=== PATIENT | male | born 1975 | race Caucasian/White ===

== ENCOUNTER → 2017-10-23 | Outpatient (REF) | payer OTHER ==
[2017-10-25 00:08] LABS: LEAD BLOOD ADULT 1 ug/dL (0-19)
== END ==
LOC: M LAB REF 13:38
DX: Z77.011 Contact with and (suspected) exposure to lead (principal)

== ENCOUNTER → 2018-02-08 | Outpatient (CLI) | payer OTHER | LOC: M WUC 13:10 | DX: S92.411A Displaced fracture of proximal phalanx of right great toe, initial encounter for closed fracture (principal); X58.XXXA Exposure to other specified factors, initial encounter; Y92.9 Unspecified place or not applicable | CPT/HCPCS: 73660 ==

== ENCOUNTER → 2020-06-16 | Outpatient (CLI) | payer SELFPAY | LOC: M LABSMTC 11:08 | PROVIDERS: ATTEND Pediatrics | DX: Z20.822 Contact with and (suspected) exposure to COVID-19 (principal) ==

== ENCOUNTER → 2022-07-07 | Outpatient (CLI) | payer OTHER ==
[~2022-07-07] MED LIST: LEVO1TAB39; OMEP-173; SERT50TA29
== END ==
LOC: M LABSMTC 11:04
PROVIDERS: ATTEND Anesthesiology
DX: Z01.812 Encounter for preprocedural laboratory examination (principal); Z20.822 Contact with and (suspected) exposure to COVID-19

== ENCOUNTER 2022-07-10 10:26 | Day surgery (SDC) | payer OTHER ==
[~2022-07-10] VITALS: Ht 185.4 cm; Wt 89.7 kg
[~2022-07-10 10:26] MED LIST changes: +NS 1,000 ML IV ONE
[2022-07-10] MEDS ORDERED: LIDOCAINE 2% 100MG/5ML SDV (FOR ANES.) As Ordered ONE (12:36)
[2022-07-10] MEDS ORDERED: propofoL 200 MG/20 ML VIAL As Ordered ONE (12:37)
[2022-07-10 13:07] VITALS: BP 127/75
== END 2022-07-10 13:29 | disposition home or self-care (01) ==
LOC: M OPP 10:26
PROVIDERS: ATTEND Internal Medicine Gastroenterology
DX: Z12.11 Encounter for screening for malignant neoplasm of colon (principal); K63.89 Other specified diseases of intestine; K63.3 Ulcer of intestine; Z88.1 Allergy status to other antibiotic agents; Z88.2 Allergy status to sulfonamides; Z91.010 Allergy to peanuts